=== PATIENT | male | born 2000 | race Caucasian/White ===

== ENCOUNTER 2022-09-24 20:22 | Emergency (ER) | payer OTHER ==
[2022-09-24] MEDS ORDERED: Morphine 4 MG/ML VIAL ONE (20:51)
[2022-09-24] MEDS ORDERED: Boostrix 0.5 ML (Tdap) VIAL (>/=7 yrs of age) ONE (20:51)
[2022-09-24] MEDS ORDERED: Ondansetron PF 4 MG/2 ML Vial ONE (20:56)
== END 2022-09-24 21:36 | disposition home or self-care (01) ==
LOC: ERS 20:22
DX: S00.83XA Contusion of other part of head, initial encounter (principal); V00.838A Other accident with motorized mobility scooter, initial encounter; Y93.55 Activity, bike riding
CPT/HCPCS: 70450; 71045; 72125; 90471; 90715; 96374; 96375; G0390; J2270; J2405